=== PATIENT | male | born 1965 | race Caucasian/White ===

== ENCOUNTER 2020-08-22 06:08 | Inpatient (IN) ==
[2020-08-22] MEDS ORDERED: CeFAZolin Syr 2,000MG/20 ML 2,000 MG/20 ML SYRINGE IVPB ONE (06:24)
[2020-08-22] MEDS ORDERED: Famotidine 20 MG/2 ML VIAL IVP ONE (07:15)
[2020-08-22] MEDS ORDERED: Ondansetron 4 MG/2 ML VIAL IVP ONE (07:15)
[2020-08-22] MEDS ORDERED: Acetaminophen IV 1,000 MG/100 ML BAG IVPB ONE (07:15)
[2020-08-22] MEDS ORDERED: Scopolamine Patch 1.5 MG PATCH.TD72 TD ONE (07:15)
[2020-08-22] MEDS ORDERED: Pregabalin 75 MG CAPSULE PO ONE (07:15)
[2020-08-22] MEDS ORDERED: *HR* OxyCODONE ER (12 HR) 10 MG TABLET PO ONE (07:15)
[2020-08-22] MEDS ORDERED: *HR* Midazolam HCl 2 MG/2 ML VIAL ONE (07:16)
[2020-08-22] MEDS ORDERED: *HR* FentaNYL (PF) 100 MCG/2 ML VIAL ONE (07:16)
[2020-08-22] MEDS ORDERED: *HR* Propofol 200 MG/20 ML VIAL IVP ONE (07:16)
[2020-08-22] MEDS ORDERED: Dexamethasone 4 MG/ML VIAL ONE (07:21)
[2020-08-22] MEDS ORDERED: *HR* Succinylcholine 200 MG/10 ML VIAL IVP ONE (07:21)
[2020-08-22] MEDS ORDERED: Ondansetron 4 MG/2 ML VIAL ONE (07:21)
[2020-08-22] MEDS ORDERED: *HR* Rocuronium Bromide 50 MG/5 ML VIAL ONE ×2 (07:21→10:40)
[2020-08-22] MEDS ORDERED: Lidocaine -MPF 4% 5 ML AMPUL ONE (07:23)
[2020-08-22] MEDS: Ringers Solution, Lactated 1,000 ML IVC SCH (07:57)
[2020-08-22] MEDS ORDERED: *HR* FentaNYL (PF) 100 MCG/2 ML VIAL IVP PRN (08:11)
[2020-08-22] MEDS ORDERED: *HR* Metoprolol 5 MG/5 ML VIAL IVP PRN ×2 (08:11→12:01)
[2020-08-22] MEDS ORDERED: Promethazine 6.25 MG in Water for inj. (sterile) 20 ML IVPB PRN (08:11)
[2020-08-22] MEDS ORDERED: Naloxone 0.4 MG/ML INJ IVP PRN (08:11)
[2020-08-22] MEDS ORDERED: *HR* HYDROmorphone PF 0.5 MG/0.5 ML SYRINGE IVP PRN (08:11)
[2020-08-22] MEDS ORDERED: Albuterol 2.5 MG/3 ML NEBULIZER IH PRN (08:11)
[2020-08-22] MEDS ORDERED: ceFAZolin 1,000 MG, Sodium Chloride IRRigation 1,000 ML IR ONE (08:15)
[2020-08-22] MEDS ORDERED: Albumin Human 5% 25.0 GM/500 ML IV.SOLN ONE (08:42)
[2020-08-22] MEDS ORDERED: *HR* PHENYLEPHRINE 1,000 MCG/10 ML SYRINGE IVP ONE ×2 (09:00→10:00)
[2020-08-22] MEDS ORDERED: EPHEDrine 50 MG/ML VIAL ONE (10:14)
[2020-08-22] MEDS ORDERED: *HR* Phenylephrine 10 MG/ML VIAL ONE (10:18)
[2020-08-22] MEDS ORDERED: polyethylene glycoL 3350 17 GM POWD.PACK PO PRN (12:01)
[2020-08-22] MEDS ORDERED: *HR* OxyCODONE Immed Rel 5 MG TABLET PO PRN (12:07)
[2020-08-22] MEDS: 0.9 % Sodium Chloride 1,000 ML IVC SCH (15:21)
[2020-08-22] MEDS: Ketorolac 15 MG/ML VIAL IVP SCH ×2 (19:00→23:23)
[2020-08-22] MEDS: *HR* Heparin 5,000 UNIT/ML VIAL SQ SCH (19:00)
[2020-08-22] MEDS: Acetaminophen IV 1,000 MG/100 ML BAG IVPB SCH ×2 (19:58→23:24)
[2020-08-22] MEDS: CeFAZolin 2 GM/120 ML BAG IVPB SCH (21:20)
[2020-08-23] MEDS: CeFAZolin 2 GM/120 ML BAG IVPB SCH (02:09)
[2020-08-23] MEDS: Ondansetron 4 MG/2 ML VIAL IVP PRN (04:04)
[2020-08-23 04:36] LABS: Calcium 7.8 mg/dL (8.6-10.3); Potassium 4.9 mEq/L (3.5-5.1)
[2020-08-23 04:51] LABS: Basophils % 0.3 %; Hematocrit 27.1 % (37.5-50.1); Immature Granulocytes % 0.4 % (0-4); Lymphocytes # 1.4 K/mcL (0.6-4.6); Lymphocytes % 18.8 %; Mean Corpuscular HGB Conc 31.4 g/dL (31.6-35.5); Mean Corpuscular Hemoglobin 27.5 pg (28.0-33.3); Mean Corpuscular Volume 87.7 fL (83.0-100.0); Monocytes # 0.7 K/mcL (0.0-1.3); Monocytes % 9.3 %; Neutrophils # 5.1 K/mcL (1.6-8.9); Platelet Count 250 K/mcL (140-400); Red Blood Count 3.09 M/mcL (4.19-5.50); Red Cell Distribution Width 13.6 % (11.5-14.5); Segmented Neutrophils % 71.2 %; White Blood Count 7.2 K/mcL (4.3-11.1)
[2020-08-23 04:54] LABS: Hemoglobin 8.5 g/dL (12.9-16.9)
[2020-08-23] MEDS: Ringers Solution, Lactated 1,000 ML IVC SCH (05:10)
[2020-08-23] MEDS: *HR* Heparin 5,000 UNIT/ML VIAL SQ SCH ×2 (05:23→18:57)
[2020-08-23] MEDS: Ketorolac 15 MG/ML VIAL IVP SCH (05:24)
[2020-08-23] MEDS: 0.9 % Sodium Chloride 1,000 ML IVC SCH ×2 (05:24→18:57)
[2020-08-23] MEDS: Acetaminophen IV 1,000 MG/100 ML BAG IVPB SCH ×3 (05:54→18:57)
[2020-08-23] MEDS ORDERED: 0.9 % Sodium Chloride 1,000 ML IVC ONE (06:40)
[2020-08-23] MEDS: Iron Sucrose Complex 250 MG in 0.9 % Sodium Chloride 250 ML IVPB SCH (09:20)
[2020-08-23] MEDS ORDERED: 0.9 % Sodium Chloride 1,000 ML IV ONE (11:41)
[2020-08-23 11:56] LABS: C-Reactive Protein 152 mg/L (Less than 10); Creatine Kinase 64 Units/L (30-223)
[2020-08-23] MEDS ORDERED: Dextrose Gel 15 GM/37.5 ML TUBE PO PRN ×2 (12:30)
[2020-08-23] MEDS ORDERED: D5% in Water 1,000 ML IVC PRN (12:30)
[2020-08-23] MEDS ORDERED: *HR* Dextrose 50 % in Water (Vial) 50 ML VIAL IVP PRN (12:30)
[2020-08-23 12:36] LABS: Estimated Average Glucose 126 mg/dl
[2020-08-23 17:03] LABS: Hematocrit 23.2 % (37.5-50.1); Hemoglobin 7.3 g/dL (12.9-16.9)
[2020-08-23 17:37] LABS: Calcium 7.6 mg/dL (8.6-10.3); Potassium 4.8 mEq/L (3.5-5.1)
[2020-08-23] MEDS: Insulin LISPRO 300 UNITS/3 ML VIAL SQ SCH (18:58)
[2020-08-23 21:22] LABS: Folate 5.3 ng/mL (3.0-16.0)
[2020-08-24] MEDS: Acetaminophen IV 1,000 MG/100 ML BAG IVPB SCH ×5 (00:07→23:10)
[2020-08-24] MEDS: 0.9 % Sodium Chloride 1,000 ML IVC SCH ×4 (04:08→20:10)
[2020-08-24] MEDS: Insulin LISPRO 300 UNITS/3 ML VIAL SQ SCH ×5 (05:06→22:37)
[2020-08-24 05:52] LABS: Basophils % 0.3 %; Eosinophils # 0.1 K/mcL (0.0-0.6); Eosinophils % 1.5 %; Hematocrit 22.2 % (37.5-50.1); Hemoglobin 6.9 g/dL (12.9-16.9); Immature Granulocytes % 0.3 % (0-4); Lymphocytes # 1.1 K/mcL (0.6-4.6); Mean Corpuscular HGB Conc 31.1 g/dL (31.6-35.5); Mean Corpuscular Hemoglobin 27.8 pg (28.0-33.3); Mean Corpuscular Volume 89.5 fL (83.0-100.0); Mean Platelet Volume 10.1 fL (9.4-12.4); Monocytes # 0.6 K/mcL (0.0-1.3); Monocytes % 9.5 %; Neutrophils # 4.3 K/mcL (1.6-8.9); Platelet Count 223 K/mcL (140-400); Red Blood Count 2.48 M/mcL (4.19-5.50); Red Cell Distribution Width 13.9 % (11.5-14.5); Segmented Neutrophils % 70.4 %; White Blood Count 6.1 K/mcL (4.3-11.1)
[2020-08-24] MEDS: *HR* Heparin 5,000 UNIT/ML VIAL SQ SCH ×2 (06:02→17:43)
[2020-08-24 06:35] LABS: Magnesium 1.8 mg/dL (1.6-2.6); Phosphorous 5.4 mg/dL (2.7-4.5); Potassium 4.4 mEq/L (3.5-5.1)
[2020-08-24] MEDS: Ringers Solution, Lactated 1,000 ML IVC SCH (06:50)
[2020-08-24] MEDS ORDERED: Gadolinium Contrast Agent (WT Based) IV PRN (08:03)
[2020-08-24] MEDS ORDERED: 0.9 % Sodium Chloride 250 ML IVC SCH (11:00)
[2020-08-24] MEDS ORDERED: 0.9 % Sodium Chloride 250 ML ONE (11:10)
[2020-08-24] MEDS: Iron Sucrose Complex 250 MG in 0.9 % Sodium Chloride 250 ML IVPB SCH (11:21)
[2020-08-24 16:25] LABS: Hematocrit 23.7 % (37.5-50.1); Hemoglobin 7.5 g/dL (12.9-16.9)
[2020-08-24] MEDS: Ondansetron 4 MG/2 ML VIAL IVP PRN ×2 (17:44→23:18)
[2020-08-25] MEDS: Acetaminophen IV 1,000 MG/100 ML BAG IVPB SCH ×2 (05:59→12:07)
[2020-08-25] MEDS: *HR* Heparin 5,000 UNIT/ML VIAL SQ SCH ×2 (06:00→17:27)
[2020-08-25] MEDS: Insulin LISPRO 300 UNITS/3 ML VIAL SQ SCH ×4 (07:54→21:49)
[2020-08-25] MEDS: Iron Sucrose Complex 250 MG in 0.9 % Sodium Chloride 250 ML IVPB SCH (10:13)
[2020-08-25] MEDS: Ringers Solution, Lactated 1,000 ML IVC SCH (11:46)
[2020-08-25] MEDS: 0.9 % Sodium Chloride 1,000 ML IVC SCH (11:55)
[2020-08-25] MEDS: *HR* Metoprolol 5 MG/5 ML VIAL IVP SCH ×3 (12:04→23:21)
[2020-08-26] MEDS: *HR* Metoprolol 5 MG/5 ML VIAL IVP SCH ×4 (05:45→17:03)
[2020-08-26] MEDS: *HR* Heparin 5,000 UNIT/ML VIAL SQ SCH ×2 (05:45→17:04)
[2020-08-26] MEDS: Ringers Solution, Lactated 1,000 ML IVC SCH (05:45)
[2020-08-26] MEDS: Insulin LISPRO 300 UNITS/3 ML VIAL SQ SCH ×4 (07:26→21:17)
[2020-08-26 11:34] LABS: Basophils % 0.4 %; Eosinophils # 0.3 K/mcL (0.0-0.6); Eosinophils % 3.7 %; Hematocrit 23.8 % (37.5-50.1); Hemoglobin 7.4 g/dL (12.9-16.9); Immature Granulocytes % 0.4 % (0-4); Lymphocytes # 1.3 K/mcL (0.6-4.6); Lymphocytes % 18.6 %; Mean Corpuscular HGB Conc 31.1 g/dL (31.6-35.5); Mean Corpuscular Hemoglobin 28.1 pg (28.0-33.3); Mean Corpuscular Volume 90.5 fL (83.0-100.0); Mean Platelet Volume 9.9 fL (9.4-12.4); Monocytes # 0.5 K/mcL (0.0-1.3); Monocytes % 7.5 %; Neutrophils # 4.9 K/mcL (1.6-8.9); Platelet Count 257 K/mcL (140-400); Red Blood Count 2.63 M/mcL (4.19-5.50); Red Cell Distribution Width 14.1 % (11.5-14.5); Segmented Neutrophils % 69.4 %; White Blood Count 7.1 K/mcL (4.3-11.1)
[2020-08-26] MEDS: Iron Sucrose Complex 250 MG in 0.9 % Sodium Chloride 250 ML IVPB SCH (11:48)
[2020-08-26 11:57] LABS: BUN/Creatinine Ratio 29 (6-26); Blood Urea Nitrogen 34 mg/dL (6-20); Calcium 7.9 mg/dL (8.6-10.3); Carbon Dioxide 25 mEq/L (23-29); Chloride 107 mEq/L (98-107); Glucose 163 mg/dL (70-105); Osmolality,Calculated 291 (280-300); Potassium 4.1 mEq/L (3.5-5.1); Sodium 135 mEq/L (136-145); eGFR For African Americans > 60 (> 60); eGFR For Non-African Americans > 60 (> 60)
[2020-08-26] MEDS: *HR* Metformin 500 MG TABLET PO SCH (17:03)
[2020-08-27] MEDS: *HR* Metoprolol 5 MG/5 ML VIAL IVP SCH ×4 (00:37→17:18)
[2020-08-27] MEDS: *HR* Heparin 5,000 UNIT/ML VIAL SQ SCH ×2 (05:30→17:18)
[2020-08-27] MEDS: *HR* Glimepiride 4 MG TABLET PO SCH (08:32)
[2020-08-27] MEDS: *HR* Metformin 500 MG TABLET PO SCH ×2 (08:32→17:18)
[2020-08-27] MEDS: Insulin LISPRO 300 UNITS/3 ML VIAL SQ SCH ×4 (10:06→20:32)
[2020-08-27] MEDS ORDERED: Ketorolac 15 MG/ML VIAL IVP PRN (16:36)
[2020-08-27] MEDS ORDERED: *HR* OxyCODONE/APAP 5/325 TABLET PO PRN (16:36)
[2020-08-28] MEDS: *HR* Metoprolol 5 MG/5 ML VIAL IVP SCH ×3 (00:46→12:52)
[2020-08-28] MEDS: *HR* Heparin 5,000 UNIT/ML VIAL SQ SCH ×2 (06:10→17:05)
[2020-08-28] MEDS: *HR* Glimepiride 4 MG TABLET PO SCH (09:25)
[2020-08-28] MEDS: Insulin LISPRO 300 UNITS/3 ML VIAL SQ SCH ×4 (09:29→20:48)
[2020-08-28] MEDS: *HR* Metformin 500 MG TABLET PO SCH ×2 (09:29→17:05)
[2020-08-29] MEDS: *HR* Heparin 5,000 UNIT/ML VIAL SQ SCH (05:41)
[2020-08-29] MEDS: Insulin LISPRO 300 UNITS/3 ML VIAL SQ SCH ×2 (08:38→12:25)
[2020-08-29] MEDS: *HR* Metformin 500 MG TABLET PO SCH (08:38)
[2020-08-29] MEDS: *HR* Glimepiride 4 MG TABLET PO SCH (08:39)
[2020-08-29] MEDS ORDERED: Ibuprofen 800 MG TABLET PO PRN ×2 (08:58→08:59)
[2020-08-29] MEDS ORDERED: Acetaminophen 325 MG TABLET PO PRN (08:58)
[2020-08-29] MEDS ORDERED: *HR* OxyCODONE/APAP 5/325 TABLET PO PRN (08:59)
[2020-08-29 09:04] LABS: Basophils % 0.4 %; Eosinophils # 0.3 K/mcL (0.0-0.6); Eosinophils % 3.5 %; Hematocrit 25.4 % (37.5-50.1); Hemoglobin 7.9 g/dL (12.9-16.9); Immature Granulocytes % 0.7 % (0-4); Lymphocytes # 1.8 K/mcL (0.6-4.6); Lymphocytes % 18.8 %; Mean Corpuscular HGB Conc 31.1 g/dL (31.6-35.5); Mean Corpuscular Hemoglobin 28.2 pg (28.0-33.3); Mean Corpuscular Volume 90.7 fL (83.0-100.0); Mean Platelet Volume 9.1 fL (9.4-12.4); Monocytes # 0.8 K/mcL (0.0-1.3); Monocytes % 8.2 %; Neutrophils # 6.5 K/mcL (1.6-8.9); Platelet Count 300 K/mcL (140-400); Red Cell Distribution Width 15.7 % (11.5-14.5); Segmented Neutrophils % 68.4 %; White Blood Count 9.5 K/mcL (4.3-11.1)
[2020-08-29 09:14] LABS: BUN/Creatinine Ratio 30 (6-26); Blood Urea Nitrogen 31 mg/dL (6-20); Calcium 8.2 mg/dL (8.6-10.3); Carbon Dioxide 24 mEq/L (23-29); Chloride 109 mEq/L (98-107); Glucose 73 mg/dL (70-105); Osmolality,Calculated 289 (280-300); Phosphorous 3.6 mg/dL (2.7-4.5); Potassium 3.9 mEq/L (3.5-5.1); Sodium 137 mEq/L (136-145); eGFR For African Americans > 60 (> 60); eGFR For Non-African Americans > 60 (> 60)
[2020-08-29 09:56] LABS: Adenovirus Not Detected (Not Detect); Bordetella Pertussis Not Detected (Not Detect); Chlamydophila pneumoniae Not Detected (Not Detect); Coronavirus 229E Not Detected (Not Detect); Coronavirus HKU1 Not Detected (Not Detect); Coronavirus NL63 Not Detected (Not Detect); Coronavirus OC43 Not Detected (Not Detect); Human Metapneumovirus Not Detected (Not Detect); Human Rhinovirus/Enterovirus Not Detected (Not Detect); Influenza A Subtype 2009 H1 Not Detected (Not Detect); Influenza B Not Detected (Not Detect); Mycoplasma pneumoniae Not Detected (Not Detect); Parainfluenza Virus 1 Not Detected (Not Detect); Parainfluenza Virus 2 Not Detected (Not Detect); Parainfluenza Virus 3 Not Detected (Not Detect); Parainfluenza Virus 4 Not Detected (Not Detect); Respiratory Syncytial Virus Not Detected (Not Detect); SARS-CoV-2 Not Detected (Not Detect)
[2020-08-29 10:31] VITALS: BP 131/81
== END 2020-08-29 16:41 | DRG 227 ==
LOC: 3ANU 06:08 → SAMDAY 06:08 → 3ANU 13:45
PROVIDERS: ADMIT Surgery; ATTEND Surgery